=== PATIENT | female | born 1965 | race Caucasian/White ===

== ENCOUNTER 2017-10-01 11:04 | Emergency (ER) | payer OTHER ==
[~2017-10-01] VITALS: Ht 167.6 cm; Wt 70.3 kg
[~2017-10-01 11:04] MED LIST: ALPR0.5T; CEPH-37; CITA10TA70; NAPR-591; TRAZ50TA2
[2017-10-01 12:00] VITALS: BP 146/90
== END 2017-10-01 13:19 | disposition home or self-care (01) ==
LOC: ER 11:04 → EDBD 11:04 → ER 13:16
DX: F41.9 Anxiety disorder, unspecified (principal); I10 Essential (primary) hypertension; R42 Dizziness and giddiness; Z00.00 Encounter for general adult medical examination without abnormal findings; Z88.6 Allergy status to analgesic agent; Z88.8 Allergy status to other drugs, medicaments and biological substances; Z98.51 Tubal ligation status; Z86.73 Personal history of transient ischemic attack (TIA), and cerebral infarction without residual deficits
CPT/HCPCS: 70450